=== PATIENT | female | born 1935 | race Caucasian/White ===

== ENCOUNTER 2016-07-14 07:30 | Inpatient (IN) | payer MEDICARE, BC ==
[2016-07-10 11:54] LABS: BASOPHILS 0.4 % (0.0-2.0); EOSINOPHILS 1.7 % (0-7); HEMATOCRIT 34.5 % (36.0-48.0); HEMOGLOBIN 10.9 g/dL (12-16); IMMATURE GRANULOCYTES 1.1 % (0-5); LYMPHOCYTES 10.8 % (15-50); MCH 30.4 pg (26.0-34.0); MCHC 31.6 g/dL (31.0-37.0); MCV 96.4 fL (80.0-100.0); MEAN PLATELET VOLUME 9.3 fL (7.4-10.4); MONOCYTES 10.6 % (2-11); NEUTROPHILS 75.4 % (40-80); PLATELET COUNT 309 10x3/uL (130-400); RBC 3.58 10x6/uL (4.00-5.40); RDW 13.1 % (11.5-14.5); WBC 9.5 10x3/uL (4.8-10.8)
[2016-07-10 12:04] LABS: ANION GAP 10.5 mmol/L (8-16); CALCIUM 9.1 mg/dL (8.5-10.1); CARBON DIOXIDE 29.1 mmol/L (21.0-32.0); CREATININE - SERUM 0.8 mg/dL (0.6-1.3); POTASSIUM - SERUM 3.6 mmol/L (3.5-5.1)
[2016-07-10 12:06] LABS: APTT 32.7 SECONDS (22.8-39.4); INR 1.02 (0.85-1.17); PROTIME 13.2 SECONDS (11.6-15.0)
[2016-07-10 12:27] LABS: APPEARANCE HAZY (CLEAR); BILIRUBIN NEGATIVE (NEGATIVE); COLOR STRAW (YELLOW); EPITHELIAL CELLS 0-5 /hpf (0-5); GLUCOSE NEGATIVE (NEGATIVE); KETONE NEGATIVE (NEGATIVE); LEUKOCYTE ESTERASE NEGATIVE (NEGATIVE); NITRITE NEGATIVE (NEGATIVE); PROTEIN NEGATIVE (NEGATIVE); SPECIFIC GRAVITY 1.005 (1.005-1.020); UROBILINOGEN NORMAL (NORMAL); WHITE CELLS - URINE RARE /hpf (0-5)
[2016-07-10 12:28] LABS: BACTERIA FEW /hpf (NONE SEEN)
[~2016-07-14] VITALS: Ht 157.5 cm; Wt 52.3 kg
[~2016-07-14 07:30] MED LIST: ADVIL PM CAPLET1 TAB PO; ASCORBIC ACID500 MG PO; ASPIRIN EC81 M1 PO; CALTRATE 600 M600 M1 PO; CYCLOBENZAPRINE10 MG PO; METAMUCIL1042 GM PO; VALIUM5 MG PO; VITAMIN D31000 UNIT PO
[2016-07-14 10:18] VITALS: BP 140/70; BMI 21.0
--- NOTE | 2016-07-14 13:49 | NUR ---
LEFT LEG AND FOOT WASHED WITH HIBICLENS AND ALCOHOL PRIOR TO CHLORPREP PER Xenia.
[2016-07-14 14:53] VITALS: BP 106/55
--- NOTE | 2016-07-14 14:55 | NUR ---
RECEIVED TO ROOM 2212 FROM RECOVERY ROOM VIA BED. ORIENTED TO ROOM AND CALL LIGHT SYSTEM. IS GIVEN TO PATIENT AND EXPLAINED USE. CARE PLAN REVIEWED. VERBALIZED UNDERSTANDING. CALL LIGHT IN REACH. WILL CONTINUE WITH PLAN OF CARE.
--- NOTE | 2016-07-14 14:56 | NUR ---
RECEIVED TO ROOM 2212 FROM RECOVERY ROOM VIA BED. ORIENTED TO ROOM AND CALL LIGHT SYSTEM. CALL LIGHT IN REACH. WILL CONTINUE WITH PLAN OF CARE.
[2016-07-14 16:04] VITALS: BP 106/55; Ht 157.5 cm; Wt 52.3 kg
--- NOTE | 2016-07-14 16:05 | NUR ---
JENAE BRENNNA, IN ROOM TO SEE PATIENT.
[2016-07-14 16:45] VITALS: BP 107/69
--- NOTE | 2016-07-14 18:59 | NUR ---
CPM PLACED ON LLE. ANCEF IVPB. IS GIVEN TO PATIENT AND EXPLAINED USE. NO OTHER CHANGES IN INITIAL ASSESSMENT. SCDs TO BLE. BED ALARM ON. CALL LIGHT IN REACH. WILL CONTINUE WITH PLAN OF CARE.
--- NOTE | 2016-07-14 20:00 | NUR ---
ASSESSMENT PER FLOWSHEET. IV PATENT RT FOREARM OF 1/2NS AT 100CC'S/HR SITE CLEAR. EYES CLOSED RESPIRATIONS WITH EASE AND UNLABORED DRESSING TO LEFT KNEE C/D/I. BED ALARM ON. SR UP X2 CALL LIGHT WITHIN REACH. ICE TO KNEE INCISION. CPM ON.
[2016-07-14 20:58] VITALS: BP 90/48
--- NOTE | 2016-07-14 21:00 | NUR ---
MEDS GIVEN PER SEP. AWAKE AND ALERT.VOIDS ON BEDPAN.
--- NOTE | 2016-07-15 | NUR ---
REP[OSITIONED IN BED CPM OFF. RESTING QUIETLY DENIES NEEDS.
[2016-07-15 01:48] VITALS: BP 112/84
--- NOTE | 2016-07-15 02:56 | NUR ---
MEDS GIVEN PER MAR.
[2016-07-15 04:41] VITALS: BP 88/49
--- NOTE | 2016-07-15 05:30 | NUR ---
NO CHANGES IN ASSESSMENT CPM ON.
[2016-07-15 05:45] LABS: BASOPHILS 0.1 % (0.0-2.0); EOSINOPHILS 0 % (0-7); HEMATOCRIT 30.5 % (36.0-48.0); HEMOGLOBIN 9.5 g/dL (12-16); IMMATURE GRANULOCYTES 0.7 % (0-5); LYMPHOCYTES 3.9 % (15-50); MCH 29.9 pg (26.0-34.0); MCHC 31.1 g/dL (31.0-37.0); MCV 95.9 fL (80.0-100.0); MEAN PLATELET VOLUME 9.6 fL (7.4-10.4); MONOCYTES 5.1 % (2-11); NEUTROPHILS 90.2 % (40-80); PLATELET COUNT 259 10x3/uL (130-400); RBC 3.18 10x6/uL (4.00-5.40); RDW 13.5 % (11.5-14.5); WBC 10.7 10x3/uL (4.8-10.8)
[2016-07-15 05:55] LABS: ALBUMIN 2.6 g/dL (3.4-5.0); ANION GAP 12.5 mmol/L (8-16); BILIRUBIN - TOTAL 0.22 mg/dL (0.2-1.3); CALCIUM 8.2 mg/dL (8.5-10.1); CARBON DIOXIDE 24.5 mmol/L (21.0-32.0); CREATININE - SERUM 1.1 mg/dL (0.6-1.3); PROTEIN - SERUM 5.8 g/dL (6.4-8.2)
--- NOTE | 2016-07-15 07:05 | NUR ---
REPORT RECEIVED FROM ROLLER COASTER OPERATOR NURSE. CALL LIGHT IN REACH.
--- NOTE | 2016-07-15 08:23 | NUR ---
ASSESSMENT COMPLETED. IS SCDs TO BLE. CPM OFF. BED ALARM ON. CALL LIGHT IN REACH. WILL CONTINUE WITH PLAN OF CARE.
[2016-07-15 08:57] VITALS: BP 106/52
--- NOTE | 2016-07-15 09:34 | NUR ---
UP WITH PT TO CHAIR. NORCO PO WITH AM MEDS ADMINISTERED PER C/O PAIN OF 3. FRIEND IN ROOM. ICE TO KNEE. CALL LIGHT IN REACH.
--- NOTE | 2016-07-15 10:15 | NUR ---
PATIENT SITTING UP IN CHAIR AT THIS TIME WITH NO COMPLAINTS. DRESSING AND ICE TO KNEE. NO SIGNS OF DISTRESS, CALL LIGHT WITHIN REACH.
--- NOTE | 2016-07-15 11:18 | NUR ---
STATES PAIN IS A 0 NOW. IS IN USE. PATIENT ALSO TCDB. VISITOR IN ROOM. SL PER ORDER.
--- NOTE | 2016-07-15 11:41 | CN ---
PATIENT NAME:ARIANA DUBOIS MEDICAL RECORD: [id number] : 36 LOCATION:[facility] ADMIT DATE: 07/14/16 ACCOUNT: [id number] CONSULTING PHYSICIAN: YAMILETH BAUTISTA DO REFERRING PHYSICIAN: IGOR CARRINGTON MD DATE OF CONSULTATION: 07/14/2016 HISTORY OF PRESENT ILLNESS: Ms. Dubois is an 81-year-old white female who is seen postoperatively from medical management after going left total knee replacement per Dr. Carrington. PRIMARY CARE PHYSICIAN: ____. CHIEF COMPLAINT: Osteoarthritis in the past. She takes very few medications and appears to be overall in pretty good health. PAST MEDICAL HISTORY: Significant for osteoarthritis. PAST SURGICAL HISTORY: Include cataract surgeries and previous knee arthroscopy and a macular repair. ALLERGIES: None known. HOME MEDICATIONS: Include Advil PM at bedtime, cyclobenzaprine 10 t.i.d. p.r.n., diazepam 5 b.i.d. p.r.n. anxiety or sleep, calcium carbonate, ascorbic acid, vitamin D3, aspirin and psyllium. FAMILY HISTORY: Noncontributory. SOCIAL HISTORY: Previous smoker, does not drink. REVIEW OF SYSTEMS: States her pain is controlled. Denies any recent chest pain, shortness of breath, fever, chills, sweats, change in bladder or bowel habits. PHYSICAL EXAMINATION: HEAD: Normocephalic. NECK: Soft and supple. HEART: Regular. LUNGS: With good breath sounds bilaterally. ABDOMEN: Soft. EXTREMITIES: Lower extremities reveal a dressing on the left knee, which is dry and intact, good distal pulses and good range of motion. IMPRESSION: 1. Osteoarthritis. 2. Status post left total knee. PLAN: We will follow pathways. Follow H&H. DVT prophylaxis. See orders for plan. TRANSINT:[id number] Voice Confirmation ID: [id number] DOCUMENT ID: [id number] CONSULT REPORT [id number] ARIANA DUBOIS YAMILETH BAUTISTA DO at 1141 CC: [id number] DICTATION DATE: 07/14/16 1717 CRUCIBLE PACKER: 07/14/16 2044 [place] [address]
[2016-07-15 13:06] VITALS: BP 137/52
--- NOTE | 2016-07-15 13:52 | NUR ---
PT LYING IN BED. DENIES NEEDS AT THIS TIME. SRU X2. BED IN LOWEST POSITION. PHONE AND CALL LIGHT WITHIN REACH.
--- NOTE | 2016-07-15 14:13 | NUR ---
* Is the patient Alert and Oriented? Yes 0 * How many steps to enter\exit or inside your home? 0 0 * PCP Dr. Lora 0 * Pharmacy [facility] [address] 0 * Preadmission Environment Home Alone 0 * ADLs Independent 0 * Equipment Rolling Walker 0 * List name and contact numbers for known caregivers / representatives who currently or will assist patient after discharge: Daughter in law - Gracie Elliott 0 * Additional services required to return to the preadmission environment? Yes 0 * Can the patient safely return to the preadmission environment? Yes 0 * Has this patient been hospitalized within the prior 30 days at any hospital? No 07/15/2016 14:14 DCP: Discharge Planning Patient Name: ARIANA ELLIOTT Admission Status: Elective Accout number: [id number] Admission Date: 07-14-2016 : 1935 Admission Diagnosis: Attending: DUNIA Current LOS: 1 Anticipated DC Date: 07-17-2016 Planned Disposition: Home Primary Insurance: MEDICARE A & B Discharge Planning Comments: CM met with patient to assess dc plans/needs. Patient states she lives alone & was independent with ADL's & IADL's prior to admission. She states there is no way she can go home at discharge. Her first choice is to go to inpatient rehab here at [facility]. Explained she is not a candidate for inpatient rehab. Second choice is [facility]. She states she has been there several times. LUKE signed. CM will follow.
--- NOTE | 2016-07-15 14:29 | NUR ---
* Is the patient Alert and Oriented? Yes 0 * How many steps to enter\exit or inside your home? 0 0 * PCP Dr. Ghotra 0 * Pharmacy [facility] [address] 0 * Preadmission Environment Home with Family 0 * ADLs Independent 0 * Equipment Bedside Commode Wheelchair 0 * List name and contact numbers for known caregivers / representatives who currently or will assist patient after discharge: Spouse - Rula [phone] 0 * Additional services required to return to the preadmission environment? Yes 0 * Can the patient safely return to the preadmission environment? Yes 0 * Has this patient been hospitalized within the prior 30 days at any hospital? No 07/15/2016 14:29 DCP: Discharge Planning Patient Name: BARRETT SUN Admission Status: Elective Accout number: [id number] Admission Date: 07-14-2016 : 01-16-1971 Admission Diagnosis: Attending: DUNIA Current LOS: 1 Anticipated DC Date: 07-16-2016 Planned Disposition: Home Primary Insurance: [email or web address] EXCHANGE Discharge Planning Comments: CM met with patient to assess dc plans/needs. Patient states he lives at home with his , Rula. He reports he was independent with ADL's prior to hospitalization. He states he has access to a BSC & WC should he need it. He has chosen [facility] for outpatient physical therapy - Appt. scheduled 07/17 @ 0800. OP PT Rx faxed. Rolling walker has been ordered by MD office through [facility] & will be delivered to hospital prior to discharge. CM will follow.
--- NOTE | 2016-07-15 15:33 | NUR ---
PERCDIONNE PO. CALL LIGHT IN REACH. VISITORS IN ROOM.
--- NOTE | 2016-07-15 17:08 | NUR ---
NO PAIN VOICED AT THIS TIME. CALL LIGHT IN REACH.
[2016-07-15 17:18] VITALS: BP 125/64
--- NOTE | 2016-07-15 17:43 | NUR ---
PLACED ON AND OFF BEDPAN PER PARK MAINTAINER. ALSO PLACED ON CPM.
--- NOTE | 2016-07-15 18:25 | NUR ---
NO CHANGES IN INITIAL ASSESSMENT. CALL LIGHT IN REACH. WILL CONTINUE WITH PLAN OF CARE. SCDs TO BLE. ICE TO KNEE.
--- NOTE | 2016-07-15 18:47 | NUR ---
PT LYING FLAT IN BED. CPM MACHINE IN USE. PT RATES PAIN 4 ON SCALE OF 0-10. ADMINISTERED NORCO PO. PT DENIES FURTHER NEEDS. BED IN LOWEST POSITION. PHONE AND CALL LIGHT WITHIN REACH. SRU X2.
[2016-07-15 21:00] VITALS: BP 133/54
[2016-07-16 01:00] VITALS: BP 149/67
--- NOTE | 2016-07-16 02:59 | NUR ---
EYES CLOSED RESPIRATIONS WITH EASE AND UNLABORED. DRESSING TO LEFT KNEE C/D/I
[2016-07-16 05:00] VITALS: BP 144/66
[2016-07-16 06:05] LABS: BASOPHILS 0.2 % (0.0-2.0); EOSINOPHILS 0.2 % (0-7); HEMATOCRIT 31.8 % (36.0-48.0); IMMATURE GRANULOCYTES 0.6 % (0-5); MCH 29.9 pg (26.0-34.0); MCHC 31.4 g/dL (31.0-37.0); MCV 95.2 fL (80.0-100.0); MEAN PLATELET VOLUME 9.4 fL (7.4-10.4); MONOCYTES 8.5 % (2-11); NEUTROPHILS 83.5 % (40-80); PLATELET COUNT 267 10x3/uL (130-400); RBC 3.34 10x6/uL (4.00-5.40); RDW 13.8 % (11.5-14.5)
[2016-07-16 07:05] LABS: ALBUMIN 2.7 g/dL (3.4-5.0); ANION GAP 12.8 mmol/L (8-16); BILIRUBIN - TOTAL 0.43 mg/dL (0.2-1.3); CALCIUM 8.7 mg/dL (8.5-10.1); CARBON DIOXIDE 26.9 mmol/L (21.0-32.0); POTASSIUM - SERUM 3.7 mmol/L (3.5-5.1); PROTEIN - SERUM 6.2 g/dL (6.4-8.2)
[2016-07-16 07:08] LABS: CREATININE - SERUM 0.8 mg/dL (0.6-1.3)
--- NOTE | 2016-07-16 07:50 | NUR ---
AWAKE AND ALERT. ORIENTED X3. NO C/O AT THIS TIME. LUNGS ARE CLEAR BILATERALLY, NO COUGH NOTED. SKIN IS INTACT WITHOUT REDNESS EXCEPT INCISION TO LEFT KNEE WHICH HAS A DRY INTACT DRESSING IN PLACE. SL TO RIGHT FOREARM IS PATENT WITHOUT REDNESS AT INSERTION SITE. DENIES NEEDS. SCD'S OFF AT THIS TIME.
[2016-07-16 08:47] VITALS: BP 153/68
[2016-07-16] MEDS ORDERED: HYDROCODONE-APA1 TAB PO (09:01)
[2016-07-16] MEDS ORDERED: ELIQUIS2.5 MG PO (09:03)
--- NOTE | 2016-07-16 09:50 | NUR ---
UP WITH PT AMBULATED IN ROOM. REQUESTED AND GIVNE ONE HYDROCODONE PO FOR C/O LEFT KNEE PAIN LEVEL 6. WILL MONITOR.
--- NOTE | 2016-07-16 10:31 | NUR ---
07/16/2016 10:29 DCP: Discharge Planning Spoke with Judit at [facility] - Patient has been accepted and can transfer to a custodial bed tomorrow. CM will follow.
[2016-07-16 12:30] VITALS: BP 123/55
[2016-07-16 17:29] VITALS: BP 129/61
--- NOTE | 2016-07-16 17:43 | OP ---
PATIENT NAME: ARIANA NIEVES MEDICAL RECORD: [id number] :36 LOCATION:D[facility] ADMISSION DATE:07/14/16 SURGEON: IGOR CARRINGTON MD DATE OF OPERATION: 07/14/2016 Orthopedic Surgery Operative Note PREOPERATIVE DIAGNOSIS: Degenerative arthritis of the left knee. POSTOPERATIVE DIAGNOSIS: Degenerative arthritis of the left knee. PROCEDURE: Left total knee arthroplasty. SURGEON: Igor Carrington MD ANESTHESIA: General. INTRAOPERATIVE COMPLICATIONS: None. 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 IMPLANTS USED: Moses Triathlon total knee arthroplasty system, size 4 distal femur, size 11 X3 tibial bearing insert, size 4 tibial baseplate. OPERATIVE SUMMARY IN DETAIL: After obtaining the appropriate preoperative orthopedic surgery consents as well as anesthetic consultation, evaluation and clearance, the patient was brought to the operating room and placed on the operating table in supine position. After adequate general laryngeal mask airway was administered, tourniquet was placed about the proximal aspect of the left knee. The left knee was prepped and draped in routine sterile fashion. The leg was elevated and exsanguinated, tourniquet inflated to 350 mmHg. Routine midline incision was taken down for paramedian arthrotomy. Patella was everted and the distal femur was exposed. Soft tissue excision was done in the usual fashion. Distal intramedullary guide hole was created for distal intramedullary guided distal femoral cut. Proximal tibia was exposed in its entirety. Intramedullary guide hole was created here likewise. An intramedullary guided cut was made for the proximal tibia. Measurements were taken. Chamfer cuts were made on the distal femur. Trials were put into place, taken through range of motion and found to be stable in all planes. Final distal femoral preparations were followed by proximal tibial preparations. Knee cavity was irrigated in pulsatile lavage fashion. Final components were cemented into place. All excess cement was removed. After cement was allowed to harden, the knee was taken through a range of motion and found to be excellent and stable in all planes. Paramedian arthrotomy was closed with #2 Ethibond followed by #1 Vicryl and skin renaldo. Sterile dressings were applied. Tourniquet was deflated. The patient was awakened, taken to recovery room in stable condition. All final needle and sponge counts were correct. TRANSINT:[id number] Voice Confirmation ID: [id number] DOCUMENT ID: [id number] OPERATIVE REPORT [id number] ARIANA NIEVES MD, IGOR MOODY at 1743 CC: [id number] DICTATION DATE: 07/14/16 1456 BONDERIZER OPERATOR: 07/14/16 1508 ADM IN [facility] [address] [id number]
--- NOTE | 2016-07-16 18:00 | NUR ---
ATE PART OF SUPPER. I'M NOT VERY HUNGRY. NO CHANGES NOTED. CPM IN PLACE TO LEFT KNEE.
--- NOTE | 2016-07-16 20:00 | NUR ---
PATIENT IN BED ON CPM. HOB 30 DEGREES. AAOX4. RR EVEN AND UNLABORED. 0 S/S OF DISTRESS. DENIES PAIN AT THIS TIME. IV TO RIGHT FA SL WITH NO REDNESS OR SWELLING. BANDAGE TO LEFT KNEE CDI. SCD'S IN ROOM BUT OFF. SRX2. BED LOW. CALL LIGHT WITHIN REACH.
[2016-07-16 21:00] VITALS: BP 126/75
--- NOTE | 2016-07-16 22:30 | NUR ---
PATIENT OFF CPM. ASSISTED TO BSC AND VOIDED. NIGHTTIME MEDS GIVEN. NORCO GIVEN FOR PAIN. WILL REASSESS.
[2016-07-17 01:00] VITALS: BP 105/48
--- NOTE | 2016-07-17 02:00 | NUR ---
PATIENT SLEEPING WITH NO DISTRESS NOTED. CALL LIGHT WITHIN REACH.
--- NOTE | 2016-07-17 04:30 | NUR ---
ASSISTED PATIENT TO BSC AND BACK TO BED. NORCO GIVEN FOR PAIN. PATIENT NOW ON CPM.
[2016-07-17 05:20] VITALS: BP 117/53
[2016-07-17 05:28] LABS: BASOPHILS 0.2 % (0.0-2.0); EOSINOPHILS 0.8 % (0-7); HEMATOCRIT 29.2 % (36.0-48.0); HEMOGLOBIN 9.4 g/dL (12-16); IMMATURE GRANULOCYTES 1.2 % (0-5); LYMPHOCYTES 9.5 % (15-50); MCH 30.2 pg (26.0-34.0); MCHC 32.2 g/dL (31.0-37.0); MCV 93.9 fL (80.0-100.0); MEAN PLATELET VOLUME 9.3 fL (7.4-10.4); MONOCYTES 10.2 % (2-11); NEUTROPHILS 78.1 % (40-80); PLATELET COUNT 262 10x3/uL (130-400); RBC 3.11 10x6/uL (4.00-5.40); RDW 13.7 % (11.5-14.5); WBC 10.2 10x3/uL (4.8-10.8)
[2016-07-17 05:53] LABS: ALBUMIN 2.4 g/dL (3.4-5.0); ALKALINE PHOSPHATASE 53 U/L (46-116); ALT (SGPT) 17 U/L (10-68); CALC OSMOLALITY 266 mosm/kg (275-300); CALCIUM 7.9 mg/dL (8.5-10.1); CARBON DIOXIDE 26.9 mmol/L (21.0-32.0); CHLORIDE - SERUM 100 mmol/L (98-107); CREATININE - SERUM 0.7 mg/dL (0.6-1.3); GLUCOSE 102 mg/dL (74-106); POTASSIUM - SERUM 3.8 mmol/L (3.5-5.1); PROTEIN - SERUM 5.8 g/dL (6.4-8.2); SODIUM 134 mmol/L (136-145); UREA NITROGEN 9 mg/dL (7-18); eGFR NON AFRICAN AMERICAN 85 mL/min (90-120)
[2016-07-17] MEDS ORDERED: COLACE100 MG PO (08:13)
--- NOTE | 2016-07-17 08:40 | NUR ---
SCHEDULED MEDICATIONS ADMINISTERED AT THIS TIME. PT DENIES PAIN. CPM REMOVED FROM LEFT KNEE. ALERT AND ORIENTED X4. ASSESSMENT PERFORMED PER FLOWSHEET. CALL LIGHT IN REACH, BED IN LOW POSITION AND SRX2 WITH BED LOCKED. WILL CONTINUE WITH PLAN OF CARE.
[2016-07-17 09:08] VITALS: BP 128/54
--- NOTE | 2016-07-17 11:10 | NUR ---
ONE TIME DOSE OF CALCIUM GLUCONATE INFUSION STARTED TO RIGHT FOREARM IV AT THIS TIME. IV PATENT WITH NO S/S OF INFILTRATION AT THIS TIME. UP IN CHAIR PER PHYSICAL THERAPY. DENIES PAIN. CALL LIGHT IN REACH, WILL CONTINUE WITH PLAN OF CARE.
[2016-07-17 12:30] VITALS: BP 110/49
--- NOTE | 2016-07-17 12:55 | NUR ---
07/17/2016 12:52 DCP: Discharge Planning Rec'd call from [facility] with [facility] - transport van will pick patient up at 1330. Nursing to call report to [phone]. Med Rec & dc instructions faxed to facility. Patient will go to a nursing home bed.
--- NOTE | 2016-07-17 13:20 | NUR ---
EXISTING DRESSING TO LEFT KNEE REMOVED. INCISION WELL APPROXIMATED WITH BÁRBARA INTACT. NO S/S OF INFECTION PRESENT. NEW AQUACEL DRESSING APPLIED USING STERILE TECNIQUE. IV TO RIGHT FOREARM D/C WITH CATH TIP INTACT. D/C PAPER WORK REVIEWED AND PT DENIES QUESTIONS OR CONCERNS. REPORT CALLED TO [facility], NURSE LUCI GABRIEL AT [phone]. WILL DISCHARGE WHEN THEIR TRANSPORTATION ARRIVES.
== END 2016-07-17 14:00 | DRG 470 ==
LOC: D.SDCHOLD 07:30 → D.MS 07:30 → D.SDCHOLD 11:00 → EDUNIT# 11:00 → D.SDCHOLD 11:15 → D.MS 12:46 → D.SDCHOLD 13:35 → D.MS 07-17 14:00
PROVIDERS: Family Medicine; ADMIT Orthopaedic Surgery
PROC: 0SRD0J9 Replacement of Left Knee Joint with Synthetic Substitute, Cemented, Open Approach (ICD-10-PCS; principal; 2016-07-14 11:15)
DX: M17.12 Unilateral primary osteoarthritis, left knee (principal); D62 Acute posthemorrhagic anemia; Z87.891 Personal history of nicotine dependence

== ENCOUNTER 2019-06-02 15:59 | Emergency (ER) | payer MEDICARE, BC ==
[~2019-06-02] VITALS: Ht 157.5 cm; Wt 50.0 kg
[~2019-06-02 15:59] MED LIST changes: +COLACE100 MG PO; +ELIQUIS2.5 MG PO; +HYDROCODONE-APA1 TAB PO
[2019-06-02 16:08] VITALS: Ht 157.5 cm; Wt 50.0 kg
[2019-06-02] MEDS ORDERED: PROLIA INJ 660 MG/M1 SC (16:10)
[2019-06-02 17:32] VITALS: BP 140/96
== END 2019-06-02 17:33 | disposition home or self-care (01) ==
LOC: D.ER 15:59
DX: S00.83XA Contusion of other part of head, initial encounter (principal); W08.XXXA Fall from other furniture, initial encounter; M81.0 Age-related osteoporosis without current pathological fracture

== ENCOUNTER 2019-07-30 11:59 | Emergency (ER) | payer MEDICARE, BC ==
[~2019-07-30 11:59] MED LIST changes: +PROLIA INJ 660 MG/M1 SC
[2019-07-30 12:09] VITALS: Ht 157.5 cm
[2019-07-30 12:30] LABS: BASOPHILS 0.5 % (0-2); EOSINOPHILS 2.1 % (0-7); HEMATOCRIT 39.7 % (36.0-48.0); HEMOGLOBIN 12.8 g/dL (12-16); IMMATURE GRANULOCYTES 0.4 % (0-5); LYMPHOCYTES 16.9 % (15-50); MCH 30.9 pg (26.0-34.0); MCHC 32.2 g/dL (31.0-37.0); MCV 95.9 fL (80.0-100.0); MEAN PLATELET VOLUME 9.8 fL (7.4-10.4); MONOCYTES 7.7 % (2-11); NEUTROPHILS 72.4 % (40-80); PLATELET COUNT 255 10x3/uL (130-400); RBC 4.14 10x6/uL (4.00-5.40); RDW 13.6 % (11.5-14.5); WBC 8.3 10x3/uL (4.8-10.8)
[2019-07-30 12:37] LABS: CALC OSMOLALITY 282 mosm/kg (275-300); CARBON DIOXIDE 28.1 mmol/L (21.0-32.0); CHLORIDE - SERUM 105 mmol/L (98-107); CREATININE - SERUM 0.9 mg/dL (0.6-1.3); GLUCOSE 111 mg/dL (74-106); POTASSIUM - SERUM 3.5 mmol/L (3.5-5.1); SODIUM 141 mmol/L (136-145); UREA NITROGEN 16 mg/dL (7-18); eGFR NON AFRICAN AMERICAN 63 mL/min (90-120)
[2019-07-30 12:38] LABS: APTT 33.2 SECONDS (22.8-39.4); INR 0.93 (0.85-1.17); PROTIME 12.5 SECONDS (11.6-15.0)
[2019-07-30 13:02] LABS: ALBUMIN 3.6 g/dL (3.4-5.0); ALKALINE PHOSPHATASE 107 U/L (30-120); ALT (SGPT) 18 U/L (10-68); CKMB 1.3 U/L (0.0-3.6); CREATINE KINASE 84 UL (21-215); MAGNESIUM - SERUM 2.1 mg/dL (1.8-2.4); PROTEIN - SERUM 7.4 g/dL (6.4-8.2)
[2019-07-30 13:07] LABS: TROPONIN-I < 0.017 ng/mL (0.000-0.060)
[2019-07-30] MEDS ORDERED: CYCLOBENZAPRINE10 MG PO (16:08)
[2019-07-30] MEDS ORDERED: ACETAMINOPHEN500 M1 PO (16:08)
[2019-07-30] MEDS ORDERED: IBUPROFEN800 MG PO (16:08)
[2019-07-30 16:12] VITALS: BP 143/78
== END 2019-07-30 16:13 | disposition home or self-care (01) ==
LOC: D.ER 11:59
PROVIDERS: Family Medicine
DX: R07.89 Other chest pain (principal); M94.0 Chondrocostal junction syndrome [Tietze]; M79.18 Myalgia, other site

== ENCOUNTER → 2020-01-13 09:51 | Outpatient (CLI) | payer MEDICARE, BC ==
[~2020-01-13 09:51] MED LIST changes: +ACETAMINOPHEN500 M1 PO; +IBUPROFEN800 MG PO
== END | disposition home or self-care (01) ==
LOC: D.NM 09:51
PROVIDERS: ATTEND Nurse Practitioner Family
DX: Z96.659 Presence of unspecified artificial knee joint (principal)

== ENCOUNTER → 2020-01-27 09:18 | Outpatient (CLI) | payer MEDICARE, BC | END | disposition home or self-care (01) | LOC: D.NM 09:18 | PROVIDERS: ATTEND Nurse Practitioner Family | DX: Z96.659 Presence of unspecified artificial knee joint (principal) ==